=== PATIENT | female | born 1970 ===

== ENCOUNTER 2020-04-13 18:57 | Emergency (ER) | payer MEDICAID ==
[~2020-04-13] VITALS: Ht 160 cm; Wt 78.0 kg
[~2020-04-13 18:57] MED LIST: FERR325T18 PO; HYDR-3237 PO
[2020-04-13 19:06] VITALS: BP 131/83
[2020-04-13] MEDS ORDERED: OXYcodone/APAP 5/325MG TABLET PO ONE (21:00)
[2020-04-13] MEDS ORDERED: OXYcodone/APAP 5/325MG TABLET ONE (21:01)
== END 2020-04-13 22:19 | disposition home or self-care (01) ==
LOC: ED 21:35
DX: S92.355A Nondisplaced fracture of fifth metatarsal bone, left foot, initial encounter for closed fracture (principal); Z90.710 Acquired absence of both cervix and uterus; W01.0XXA Fall on same level from slipping, tripping and stumbling without subsequent striking against object, initial encounter; Y93.89 Activity, other specified; Y92.59 Other trade areas as the place of occurrence of the external cause; Y99.8 Other external cause status
CPT/HCPCS: 29515; 99284